=== PATIENT | female | born 1975 | race Hispanic/Latino ===

== ENCOUNTER 2024-01-31 09:58 | Emergency (ER) | payer BC, OTHER ==
[~2024-01-31] VITALS: Ht 160 cm; Wt 80.0 kg
[~2024-01-31 09:58] MED LIST: BYDUREON2 MG SQ; CRESTOR10 MG PO; LANTUS100 UNITS/ SC; LISINOPRIL10 MG PO; METFORMIN HCL500 MG PO; VITAMIN B-121000 MCG PO
[2024-01-31 10:00] VITALS: PULSE 74; RESP 20; TEMP 97.7
[2024-01-31] MEDS ORDERED: OZEMPIC1 MG/0.71 (10:16)
[2024-01-31] MEDS: CEFTRIAXONE 1 GM VIAL IM ONE (10:53)
[2024-01-31 11:16] VITALS: BP 160/87; PULSE 66; RESP 18; TEMP 97.6; O2SAT 98
== END 2024-01-31 11:15 | disposition home or self-care (01) ==
LOC: FSED 10:00
DX: S61.230A Puncture wound without foreign body of right index finger without damage to nail, initial encounter (principal); M67.843 Other specified disorders of tendon, right hand; L08.9 Local infection of the skin and subcutaneous tissue, unspecified; W26.8XXA Contact with other sharp object(s), not elsewhere classified, initial encounter; Y92.89 Other specified places as the place of occurrence of the external cause; I10 Essential (primary) hypertension; E11.9 Type 2 diabetes mellitus without complications; E78.5 Hyperlipidemia, unspecified
CPT/HCPCS: 73140; 96372; 99284; J0696